=== PATIENT | female | born 1975 | race Caucasian/White ===

== ENCOUNTER 2022-08-25 16:47 | Emergency (ER) | payer MEDICAID, OTHER ==
[~2022-08-25] VITALS: Ht 167.7 cm; Wt 117.9 kg
[2022-08-25 17:14] LABS: BASOPHILS # (AUTO) 0.1 10^3/uL (0.0-0.1); BASOPHILS % (AUTO) 1 % (0-10); EOSINOPHILS # (AUTO) 0.2 10^3/uL (0.0-0.3); EOSINOPHILS % (AUTO) 2 % (0-10); HEMATOCRIT 35 % (35-52); HEMOGLOBIN 11.5 g/dL (11.5-16.0); LYMPHOCYTES # (AUTO) 3.1 10^3/uL (1.0-4.0); LYMPHOCYTES % (AUTO) 30 % (12-44); MEAN CORPUSCULAR HEMOGLOBIN 29 pg (25-34); MEAN CORPUSCULAR HGB CONC 33 g/dL (32-36); MEAN CORPUSCULAR VOLUME 88 fL (80-99); MEAN PLATELET VOLUME 9.8 fL (9.0-12.2); MONOCYTES # (AUTO) 0.3 10^3/uL (0.0-1.0); MONOCYTES % (AUTO) 3 % (0-12); NEUTROPHILS # (AUTO) 6.8 10^3/uL (1.8-7.8); NEUTROPHILS % (AUTO) 65 % (42-75); PLATELET COUNT 395 10^3/uL (130-400); WHITE BLOOD COUNT 10.5 10^3/uL (4.3-11.0)
[2022-08-25 17:19] LABS: ALBUMIN 4.2 GM/DL (3.2-4.5)
[2022-08-25 17:20] LABS: INR 1.1 (0.8-1.4); POTASSIUM 3.8 MMOL/L (3.6-5.0); PROTHROMBIN TIME PATIENT 14.1 SEC (12.2-14.7)
--- NOTE | 2022-08-25 17:20 | Diagnostic Imaging Report ---
EXAMINATION: Chest 1 view. HISTORY: Chest pain. COMPARISON: None available. FINDINGS: The lungs are clear without edema or pneumonia. No pleural effusion or pneumothorax. Heart size is normal. IMPRESSION: Clear lungs. Dictated by: Dictated on workstation # [id number]
[2022-08-25 17:21] LABS: CALCIUM 9.4 MG/DL (8.5-10.1)
[2022-08-25 17:22] LABS: TOTAL PROTEIN 7.8 GM/DL (6.4-8.2)
[2022-08-25 17:24] LABS: BILIRUBIN,TOTAL 0.8 MG/DL (0.1-1.0)
[2022-08-25 17:26] LABS: CREATININE SERUM 0.98 MG/DL (0.60-1.30)
[2022-08-25 17:28] LABS: MAGNESIUM 1.8 MG/DL (1.6-2.4)
--- NOTE | 2022-08-25 17:36 | ED Cardiac General ---
History of Present Illness General Chief Complaint: Respiratory Problems Stated Complaint: SOA Nursing Triage Note: PT TO RM 6 WITH CC OF SOA FOR ABOUT A WEEK. PT STATES WAS SEEN AT [facility] TODAY AND SENT TO ED. PT DENIES PAIN. Source: patient Exam Limitations: no limitations (MARY MOTT) History of Present Illness Date Seen by Provider: Aug 25, 2022 Time Seen by Provider: 17:15 Initial Comments This 47 y/o female presents with reported SOA and right leg swelling. Patient reports she was sent from [facility] today. Patient states she began experiencing SOA approximately a week ago with gradual worsening. Patient also states her right lower leg is edematous but non-tender. Patient denies chest pain. Patient states her past cardiac history is significant for HTN. Patient states she is currently homeless and has been living in her car. Patient states she has been sedentary and spends most of the day in her car. Patient also reports she has recently relapsed on using methamphetamines; her last use was 2-3 days ago. Patient admits to prior drug abuse but had been clean for 3 years prior to recent relapse. Patient states she smokes the methamphetamines and denies IV drug use. Patient states her SOA began prior to her last drug use. Patient reports they conducted an EKG at [facility] and then instructed her to go to the ED. Timing/Duration: 1 week Activities at Onset: none Associated Systoms: Shortness of Air, Other (right lower leg edema) (MARY MOTT) Initial Comments Patient also reports brief episodes of intermittent chest pain that lasted few minutes at a time over the past 2 to 3 months. She had a negative COVID-19 test at [facility]. Patient is not actively having chest pain at this time. (NATALY AGUERO MD) Allergies and Home Medications Allergies Coded Allergies: No Known Drug Allergies (Unverified , 08/25/22) Patient Home Medication List Home Medication List Reviewed: Yes (MARY MOTT) Review of Systems Review of Systems Constitutional: no symptoms reported EENTM: No Symptoms Reported Respiratory: Shortness of Air, SOA With Exertion, SOA at Rest Cardiovascular: Edema (right lower leg) Gastrointestinal: No Symptoms Reported Genitourinary: No Symptoms Reported Musculoskeletal: no symptoms reported Skin: no symptoms reported Psychiatric/Neurological: Anxiety, Depressed, Other (bipolar) Endocrine: No Symptoms Reported Hematologic/Lymphatic: No Symptoms Reported (MARY MOTT) Cardiovascular: See HPI (NATALY AGUERO MD) Past Jrozkfm-Vjpjwl-Vyqoay Hx Patient Social History Tobacco Use?: Yes Tobacco type used: Cigarettes Smoking Status: Current Everyday Smoker Use of E-Cig and/or Vaping dev: Yes E-Cig or Vaping type used: Nicotine Substance use?: Yes Substance type: Methamphetamine Alcohol Use?: No Pt feels they are or have been: No (MARY MOTT) Tobacco Use?: Yes Tobacco type used: Cigars Smoking Status: Current Everyday Smoker Use of E-Cig and/or Vaping dev: Yes E-Cig or Vaping type used: Nicotine Substance use?: Yes Substance type: Methamphetamine Alcohol Use?: No (NATALY AGUERO MD) Immunizations Up To Date First/Initial COVID19 Vaccinat: UNK Second COVID19 Vaccination Hebert: UNK (MARY MOTT) Past Medical History Surgery/Hospitalization HX: BIPOLAR, DEPRESSION, HTN, TUBAL (MARY MOTT) Surgeries: Yes Section, Tubal Ligation Respiratory: No Cardiac: Yes Hypertension Neurological: No : No Reproductive Disorders: No Genitourinary: No Gastrointestinal: No Musculoskeletal: No Endocrine: No HEENT: No Cancer: No Psychosocial: Yes Anxiety, Bipolar Integumentary: No (NATALY AGUERO MD) Physical Exam Vital Signs Vital Signs - First Documented 08/25/22 16:50 Temp 36.2 Pulse 115 Resp 20 B/P (MAP) 177/135 (149) Pulse Ox 96 O2 Delivery Room Air (NATALY AGUERO MD) Vital Signs Capillary Refill : Less Than 3 Seconds (MARY MOTT) Height, Weight, BMI Height: '" Weight: lbs. oz. kg; 41.00 BMI Method: General Appearance: Anxious, Moderate Distress HEENT: PERRL/EOMI Respiratory: Chest Non Tender, Lungs Clear, Normal Breath Sounds, No Accessory Muscle Use Cardiovascular: Regular Rate, Rhythm Gastrointestinal: Normal Bowel Sounds, Non Tender, Soft Extremity: Swelling (right lower leg) Neurologic/Psychiatric: Alert, Oriented x3 Skin: Normal Color, Warm/Dry Lymphatic: No Adenopathy (JENAE MOTT Progress/Results/Core Measures Results/Orders Lab Results Laboratory Tests Test 08/25/22 17:00 Range/Units White Blood Count 10.5 4.3-11.0 10^3/uL Red Blood Count 4.03 3.80-5.11 10^6/uL Hemoglobin 11.5 11.5-16.0 g/dL Hematocrit 35 35-52 % Mean Corpuscular Volume 88 80-99 fL Mean Corpuscular Hemoglobin 29 25-34 pg Mean Corpuscular Hemoglobin Concent 33 32-36 g/dL Red Cell Distribution Width 14.4 10.0-14.5 % Platelet Count 395 130-400 10^3/uL Mean Platelet Volume 9.8 9.0-12.2 fL Immature Granulocyte % (Auto) 0 % Neutrophils (%) (Auto) 65 42-75 % Lymphocytes (%) (Auto) 30 12-44 % Monocytes (%) (Auto) 3 0-12 % Eosinophils (%) (Auto) 2 0-10 % Basophils (%) (Auto) 1 0-10 % Neutrophils # (Auto) 6.8 1.8-7.8 10^3/uL Lymphocytes # (Auto) 3.1 1.0-4.0 10^3/uL Monocytes # (Auto) 0.3 0.0-1.0 10^3/uL Eosinophils # (Auto) 0.2 0.0-0.3 10^3/uL Basophils # (Auto) 0.1 0.0-0.1 10^3/uL Immature Granulocyte # (Auto) 0.0 0.0-0.1 10^3/uL Prothrombin Time 14.1 12.2-14.7 SEC INR Comment 1.1 0.8-1.4 Activated Partial Thromboplast Time 38 H 24-35 SEC D-Dimer 1.19 H 0.00-0.49 UG/ML Sodium Level 139 135-145 MMOL/L Potassium Level 3.8 3.6-5.0 MMOL/L Chloride Level 102 98-107 MMOL/L Carbon Dioxide Level 25 21-32 MMOL/L Anion Gap 12 5-14 MMOL/L Blood Urea Nitrogen 12 7-18 MG/DL Creatinine 0.98 0.60-1.30 MG/DL Estimat Glomerular Filtration Rate 73 BUN/Creatinine Ratio 12 Glucose Level 120 H 70-105 MG/DL Calcium Level 9.4 8.5-10.1 MG/DL Corrected Calcium 9.2 8.5-10.1 MG/DL Magnesium Level 1.8 1.6-2.4 MG/DL Total Bilirubin 0.8 0.1-1.0 MG/DL Aspartate Amino Transf (AST/SGOT) 15 5-34 U/L Alanine Aminotransferase (ALT/SGPT) 23 0-55 U/L Alkaline Phosphatase 61 40-136 U/L Myoglobin 52.9 10.0-92.0 NG/ML Troponin I < 0.028 <0.028 NG/ML C-Reactive Protein High Sensitivity 1.46 H 0.00-0.50 MG/DL B-Type Natriuretic Peptide 721.8 H <100.0 PG/ML Total Protein 7.8 6.4-8.2 GM/DL Albumin 4.2 3.2-4.5 GM/DL (NATALY AGUERO MD) My Orders Orders - NATALY AGUERO MD Ekg Tracing (08/25/22 16:51) Cbc With Automated Diff (08/25/22 16:53) Magnesium (08/25/22 16:53) Chest 1 View, Ap/Pa Only (08/25/22 16:53) Comprehensive Metabolic Panel (08/25/22 16:53) Myoglobin Serum (08/25/22 16:53) Protime With Inr (08/25/22 16:53) Partial Thromboplastin Time (08/25/22 16:53) O2 (08/25/22 16:53) Monitor-Rhythm Ecg Trace Only (08/25/22 16:53) Ed Iv/Invasive Line Start (08/25/22 16:53) Troponin I Noble (08/25/22 16:53) Bnp Noble (08/25/22 17:34) Hs C Reactive Protein (08/25/22 17:34) Fibrin Degradation Products (08/25/22 17:34) Aspirin Chewable Tablet (Baby Aspirin Ch (08/25/22 17:45) Ct Angio Chest W (08/25/22 18:49) Iohexol Injection (Omnipaque 350 Mg/Ml 1 (08/25/22 19:00) Received Contrast (Hold Metformin- Contr (08/25/22 19:00) Ns (Ivpb) (Sodium Chloride 0.9% Ivpb Bag (08/25/22 19:00) (NATALY AGUERO MD) Medications Given in ED (NATALY AGUERO MD) Vital Signs/I&O 08/25/22 08/25/22 16:50 19:43 Temp 36.2 Pulse 115 101 Resp 20 32 B/P (MAP) 177/135 (149) 150/110 Pulse Ox 96 96 O2 Delivery Room Air Room Air (NATALY AGUERO MD) Blood Pressure Mean: 149 Progress Progress Note : Time: 19:11 Progress Note Patient was interviewed and examined along with MS 4. EKG showed left bundle branch block. No prior is available for comparison. Patient is not having chest pain at this time. EKG therefore does not likely represent any ischemic heart disease. Work-up has been relatively unremarkable to this point. D-dimer was elevated and CT angiogram is pending. Care is being transitioned to Dr. Green at this time. Medical Student Attestation and Attending Note: I have personally interviewed and examined this patient along with Bri Mott, MS 4. I have reviewed student documentation including history, physical, and assessments. I agree with the documentation except where otherwise noted. Exam: General: Alert, oriented, no acute distress, well developed, obese HEENT: Normocephalic and atraumatic Heart: Mild regular tachycardia without murmur Lungs: Clear to auscultation bilaterally with normal effort Abdomen: Soft, nontender, nondistended, normal bowel sounds Extremities: Minimal edema of the left lower extremity moderate edema of the right lower extremity. No significant tenderness. Varicosities noted. Neuropsych: Alert, oriented, no focal deficits Skin: Warm and dry without rashes (NATALY AGUERO MD) Progress Note : Progress Note 1919--ASSUMED CARE OF PT AT SHIFT CHANGE. 1929--REVIEWED CT RESULTS WITH PT, AND ADVISED ADMIT FOR FURTHER EVALUATION AND TREATMENT OF HER SYMPTOMS INCLUDING CARDIOLOGY EVALUATION, ULTRASOUND OF HER LEG, DIURETICS, ETC. PT REFUSES ADMIT AND WANTS TO LEAVE. RISKS OF LEAVING/BENEFITS OF STAYING EXPLAINED TO PATIENT AND SHE CONTINUES TO REFUSE ADMIT. AMA PAPERS SIGNED. (MICHAEL GREEN DO) Initial ECG Impression Date: Aug 25, 2022 Initial ECG Impression Time: 16:55 Initial ECG Rate: 112 Initial ECG Rhythm: S.Tach Comment Sinus tachycardia with no ischemic ST elevation or depression. Left bundle branch block. Left axis deviation. (NATALY AGUERO MD) Diagnostic Imaging Diagonstic Imaging: Xray Plain Films/CT/US/NM/MRI: chest Comments NAME: [facility]ATT [facility] REC#: [id number] PT STATUS: REG ER : 1975 PHYSICIAN: NATALY AGUERO MD ADMIT DATE: 08/25/22/ER Signed Date of Exam:08/25/22 CHEST 1 VIEW, AP/PA ONLY EXAMINATION: Chest 1 view. HISTORY: Chest pain. COMPARISON: None available. FINDINGS: The lungs are clear without edema or pneumonia. No pleural effusion or pneumothorax. Heart size is normal. IMPRESSION: Clear lungs. Dictated by: Dictated on workstation # [id number] Dict: 08/25/221715 Trans: 08/25/221736 [facility] [id number] Interpreted by: ALBERTA JOSE MD Electronically signed by: ALBERTA JOSE MD 08/25/221736 (MARY MOTT) Comments CT CHEST ANGIOGRAM--PER RADIOLOGIST REPORT AT 1925 FINDINGS: There is no pulmonary embolism. There is mild edema. No pneumonia. No pleural effusion. No pneumothorax. No suspicious nodule. There is no axillary or supraclavicular lymphadenopathy. There is no mediastinal lymphadenopathy. Left ventricle is mildly dilated. There are mild coronary artery calcifications. No pericardial effusion. Aorta is normal in caliber. Limited views of the upper abdomen show changes of cholecystectomy. There is no osseous suspicious lesion. IMPRESSION: 1. No pulmonary embolism. 2. Mild pulmonary edema. Reviewed: Reviewed by Me (MICHAEL GREEN DO) Departure Impression Primary Impression: Dyspnea on exertion Additional Impressions: Left against medical advice Chest pain Leg swelling Methamphetamine use Disposition: 07 AGAINST MEDICAL ADVICE Condition: Against Medical Advice MARY MOTT Aug 25, 2022 17:36 NATALY AGUERO MD Aug 25, 2022 19:12 MICHAEL GREEN DO Aug 25, 2022 19:30
[2022-08-25] MEDS ORDERED: ASPIRIN 81 MG CHEW (CHILDREN'S ASA) PO ONE (17:45)
[2022-08-25] MEDS ORDERED: HOLD METFORMIN - RECEIVED CONTRAST 20 ML VIAL IV SCH (19:00)
[2022-08-25] MEDS ORDERED: IOHEXOL 350 MG/ML 100 ML (OMNIPAQUE 350) VIAL IV ONE (19:00)
[2022-08-25] MEDS ORDERED: NS 100 ML (IVPB) BAG IV ONE (19:00)
--- NOTE | 2022-08-25 19:13 | Diagnostic Imaging Report ---
EXAMINATION: CT angiography of the chest. TECHNIQUE: Contrast enhanced thin section helical images were obtained through the chest with intravenous contrast timed for the optimal opacification of the arterial structures per CTA protocol. Post-processing, reconstructions and interpretation of angiographic images of the vessels was performed. 3D MIP reconstructions were performed and reviewed. All CT scans use one or more of the following dose optimizing techniques: automated exposure control, MA and/or KvP adjustment based on patient size and exam type or iterative reconstruction. HISTORY: Short of breath. COMPARISON: None available. FINDINGS: There is no pulmonary embolism. There is mild edema. No pneumonia. No pleural effusion. No pneumothorax. No suspicious nodule. There is no axillary or supraclavicular lymphadenopathy. There is no mediastinal lymphadenopathy. Left ventricle is mildly dilated. There are mild coronary artery calcifications. No pericardial effusion. Aorta is normal in caliber. Limited views of the upper abdomen show changes of cholecystectomy. There is no osseous suspicious lesion. IMPRESSION: 1. No pulmonary embolism. 2. Mild pulmonary edema. Dictated by: Dictated on workstation # [id number]
[2022-08-25 19:43] VITALS: BP 150/110
== END 2022-08-25 19:43 | disposition left against medical advice (07) ==
LOC: ER 16:52
DX: F15.90 Other stimulant use, unspecified, uncomplicated (principal); M79.89 Other specified soft tissue disorders; R06.09 Other forms of dyspnea; R07.9 Chest pain, unspecified; R79.1 Abnormal coagulation profile; F17.210 Nicotine dependence, cigarettes, uncomplicated
CPT/HCPCS: 36415; 71045; 71275; 80053; 83735; 83874; 83880; 84484; 85025; 85379; 85610; 85730; 86141; 93005; 93041

== ENCOUNTER → 2022-09-07 | Outpatient (CLI) | payer MEDICAID | LOC: CARD 14:06 | PROVIDERS: ATTEND Nurse Practitioner Family | DX: I08.3 Combined rheumatic disorders of mitral, aortic and tricuspid valves (principal); I44.7 Left bundle-branch block, unspecified | CPT/HCPCS: 93306 ==

== ENCOUNTER → 2022-10-17 | Outpatient (CLI) | payer MEDICAID ==
[~2022-10-17] MED LIST: CATHETER FLUSH 10 ML SYR IVP PRN; REGADENOSON 0.4 MG/5 ML SYR (LEXISCAN) IV ONE
[2022-10-17 09:01] VITALS: BP 119/88
--- NOTE | 2022-10-17 14:19 | Cardiology Stress Test Report ---
Stress Test Report Date of Procedure/Referring: Date of Procedure: Oct 17, 2022 PCP No,Local Physician Admitting Physician Admitting Physician: Attending Physician: Tayla Adams MD Baseline Heart Rate: 81 Baseline Blood Pressure: Blood Pressure Systolic: 119 Blood Pressure Diastolic: 88 Baseline Vitals Vital Signs Date Time Temp Pulse Resp B/P (MAP) Pulse Ox O2 Delivery O2 Flow Rate FiO2 10/17/22 09:01 81 119/88 (98) Baseline EKG: Baseline EKG: LBBB Summary After explaining the procedure to the patient, she signed a consent and then brought to the stress nuclear laboratory. Patient received 0.4 mg Lexiscan for stress test, ECG, heart rate and blood pressure were monitored continuously. Resting and stress dose of radio tracer were injected, imaging was acquired and reviewed in short axis, horizontal long axis and vertical long axis views. TID: 1.05 SSS: 10 SDS: 0 EF: 26 1. Patient tolerated Lexiscan well 2. Baseline left bundle branch block persisted during test 3. Fixed defect involving the whole anterior wall anterior apex 4. Dilated left ventricle with severe diffuse left ventricular hypokinesia, more pronounced at the anterior wall, ejection fraction 26% Copy Copies To 1: [facility]/TAYLA MCGEE MD Oct 17, 2022 14:19
== END ==
LOC: CARD 07:24
PROVIDERS: ATTEND Internal Medicine Cardiovascular Disease
DX: I25.10 Atherosclerotic heart disease of native coronary artery without angina pectoris (principal); I10 Essential (primary) hypertension
CPT/HCPCS: 78452; 93017

== ENCOUNTER 2022-10-24 12:11 | Day surgery (SDC) | payer MEDICAID ==
[~2022-10-24] VITALS: Ht 167.6 cm; Wt 117.9 kg
[2022-10-24] MEDS ORDERED: NS IV 1000 ML 1,000 ML IV SCH ×2 (12:30→18:30)
[2022-10-24] MEDS ORDERED: LIDOCAINE 1% INJ 30 ML (XYLOCAINE) VIAL ONE (12:34)
[2022-10-24] MEDS ORDERED: NS IV 1000 ML 1,000 ML ONE (12:34)
[2022-10-24] MEDS ORDERED: HEParin (CATH LAB) 2,000 ML IV ONE (12:34)
[2022-10-24 12:47] VITALS: BP 113/88
--- NOTE | 2022-10-24 13:03 | Diagnostic Imaging Report ---
INDICATION: CHF. COMPARISON: 08/25/2022. FINDINGS: Single frontal view of the chest demonstrates normal heart size and pulmonary vascularity. The lungs are well aerated and clear. No large pleural effusion or pneumothorax is seen. The visualized osseous structures show no acute abnormalities. IMPRESSION: No acute cardiopulmonary process. Dictated by: Dictated on workstation # [id number]
[2022-10-24 13:10] LABS: CLARITY,URINE CLOUDY; COLOR,URINE ORANGE; GLUCOSE, URINE (UA) NEGATIVE (NEGATIVE); HEMATOCRIT 43 % (35-52); KETONES,URINE NEGATIVE (NEGATIVE); LEUKOCYTE ESTERASE ,URINE NEGATIVE (NEGATIVE); MEAN CORPUSCULAR HEMOGLOBIN 28 pg (25-34); MEAN CORPUSCULAR HGB CONC 33 g/dL (32-36); MEAN CORPUSCULAR VOLUME 85 fL (80-99); MEAN PLATELET VOLUME 10.1 fL (9.0-12.2); NITRITE,URINE NEGATIVE (NEGATIVE); PH,URINE 5.5 (5-9); PLATELET COUNT 285 10^3/uL (130-400); PROTEIN,URINE 1+ (NEGATIVE)
[2022-10-24 13:24] LABS: BACTERIA,URINE MODERATE /HPF; BILIRUBIN,URINE NEGATIVE (NEGATIVE); INR 0.9 (0.8-1.4); PROTHROMBIN TIME PATIENT 12.8 SEC (12.2-14.7); RBC,URINE 25-50 /HPF; WBC,URINE 0-2 /HPF
[2022-10-24 13:25] LABS: AMORPHOUS SEDIMENT,UR FEW AMOR URATES /LPF
[2022-10-24 13:33] LABS: BILIRUBIN,TOTAL 0.4 MG/DL (0.1-1.0); CALCIUM 9.7 MG/DL (8.5-10.1); CREATININE SERUM 0.85 MG/DL (0.60-1.30); POTASSIUM 3.9 MMOL/L (3.6-5.0); TOTAL PROTEIN 7.8 GM/DL (6.4-8.2)
[2022-10-24] MEDS ORDERED: ACET325T38 PO (13:38)
[2022-10-24] MEDS ORDERED: CARV3.122 PO (13:38)
[2022-10-24] MEDS ORDERED: ASPI-1238 PO (13:38)
[2022-10-24] MEDS ORDERED: RT-ALBUINH INH (13:38)
[2022-10-24] MEDS ORDERED: OMEP20TA33 PO (13:38)
[2022-10-24] MEDS ORDERED: SACU1TAB2 PO (13:38)
[2022-10-24] MEDS ORDERED: DOXY100T2 PO (13:38)
[2022-10-24] MEDS ORDERED: FURO20TA4 PO (13:38)
--- NOTE | 2022-10-24 17:37 | Cardiac Procedure Note-CS/ASA ---
Pre-Procedure Note Pre-Op Procedure Note Date of Available H&P: Oct 18, 2022 Date H&P Reviewed: Oct 24, 2022 Time H&P Reviewed: 17:37 History & Physical: H&P Reviewed, Patient Examed, No changes noted Pre-Operative Diagnosis: CHF Conscious Sedation Pre-Proced Time 17:37 ASA Score 3 For ASA 3 and 4: Consider anesthesia and medical clearance. Also, for patients with a history of failed moderate sedation consider anesthesia. Airway Lungs Heart ASA score ASA 1: a normal healthy patient ASA 2: a patient with a mild systemic disease (mid diabetes, controlled hypertension, obesity ASA 3: a patient with a severe systemic disease that limits activity (angina, COPD, prior Myocardial infarction) ASA 4: a patient with an incapacitating disease that is a constant threat to life (CHF, renal failure) ASA 5: a moribund patient not expected to survive 24 hrs. (ruptured aneurysm) ASA 6: a declared brain- patient whose organs are being harvested. For emergent operations, add the letter E after the classification Mallampati Classification Grade 3 Sedation Plan Analgesia, Amnesia, Plan communicated to team members, Discussed options with patient/fam, Discussed risks with patient/fam The patient is an appropriate candidate to undergo the planned procedure, sedation, and anesthesia. The patient immediately re-assessed prior to indication. TAYLA TAPIA MD Oct 24, 2022 17:37
[2022-10-24] MEDS ORDERED: VERAPAMIL 5 MG/2 ML (CALAN) VIAL IV ONE (17:58)
[2022-10-24] MEDS ORDERED: fentaNYL INJ 100 MCG/2 ML AMP ONE (17:58)
[2022-10-24] MEDS ORDERED: MIDAZOLAM 5 MG/5 ML (VERSED) VIAL ONE (17:59)
[2022-10-24] MEDS ORDERED: HEParin 1000 UNIT/ML (10ML VIAL) FOR BOLUS ONE (17:59)
[2022-10-24] MEDS ORDERED: NITRO DRIP 25000 MCG/D5W 250 ML IV ONE (17:59)
[2022-10-24] MEDS ORDERED: EMPA10TA PO (18:32)
[2022-10-24] MEDS ORDERED: SPIR25TA PO (18:32)
--- NOTE | 2022-10-24 18:32 | Discharge Inst-Post CATH ---
Discharge Inst-CATH/EP Problems Reviewed?: Yes Post Cardiac Cath/EP D/C Inst Follow Up/Plan Appointment with Dr. Adams's office in 2 to 4 weeks <b>CARDIAC CATH/EP PROCEDURE DISCHARGE INSTRUCTIONS</b> ACTIVITY * Go Home directly and rest. * Limit activity of the leg (or wrist if it was used) for 7 days including aer obics, swimming, jogging, bicycling, etc. * Restrict stair-climbing for 7 days if possible, if not, climb up with your non-cath leg, then bring together on the same step. * Avoid lifting, pushing, pulling or excessive movement of the affected extremi ty for 7 days. * Customary sexual activity may be resumed after 2 days-use caution not to use a position that strains or causes pain to the affected extremity. * No driving for 24 hours. * NO SMOKING. * Avoid straining for bowel movements for 7 days. * Gentle walking on level ground is allowed. * Returning to work will depend on the type of procedure and the results. Your doctor will discuss this with you. CALL YOUR DOCTOR FOR ANY OF THE FOLLOWING: *If bleeding from the puncture site occurs- Apply gentle pressure to site with clean cloth and call your doctor or EMS. * If a knot or lump forms under the skin, increases in size, or causes pain. * If bruising appears to be worsening or moving further down your leg instead of disappearing. * Temperature above 101 F. CARE OF YOUR GROIN INCISION; * Bruising or purple discoloration of the skin near the puncture site is common. * You may shower only, no bathtub bathing for 5 days. Be careful to avoid slipping as your leg may feel stiff. * If a closure device was used on your femoral artery, please see the attached guide regarding care of the device and your leg. * Leave dressing on FOR 24 hours. CARE OF YOUR WRIST INCISION; * Bruising or purple discoloration of the skin near the puncture site is common. * You may shower. * DO NOT submerge wrist. * Leave dressing on FOR 24 hours. TAYLA ADAMS MD Oct 24, 2022 18:32
--- NOTE | 2022-10-24 18:36 | Cardiac Cath Report ---
Cardiac Cath Report Physician (s)/Fan Balancer (s) Physician TAYLA TAPIA MD Pre-Procedure Diagnosis Pre-Procedure Diagnosis: CHF Post-Procedure Note Procedure Start Date: Oct 24, 2022 Name of Procedure: Left heart catheterization Findings/Procedure Note PROCEDURE NOTE: 47-year-old lady with severe cardiomyopathy, deterioration left ventricular function, abnormal stress test, recommended cardiac catheterization possible PTCA. After explaining the procedure to the patient, all pros and cons were explained, all questions were answered. The patient signed the consent and then she was placed in the cardiac catheterization laboratory. Groin was prepped in SL fashion local anesthesia was used. Sheath placed in the right radial artery, Kimball catheter was advanced to the left ventricular cavity, pressure was measured, pullback LV to aorta was done. Engaged the right coronary system and angiogram was done then the system went down, I was unable to do power injector. After multiple attempts and changing the whole system I decided to proceed with manual injection in the left system, I engaged the left coronary system and did manual injection. At the end of the procedure the sheath was removed. Vascular band was used FINDINGS: Hemodynamics LV 106/23, end-diastolic pressure of 23 Aorta 101/72 mean of 82 ANATOMY: Left Main is free of obstructive disease Left Anterior Descending has mild to moderate disease up to 40 to 50% stenosis in the mid LAD nonobstructive disease Left Circumflex has mild to moderate disease nonobstructive disease Right Coronary Artery is dominant artery with mild disease nonobstructive disease LV Gram was done showing dilated left ventricle with diffuse left ventricular hypokinesia, ejection fraction 30% CONCLUSION: 1. Severe dilated cardiomyopathy, nonischemic cardiomyopathy known ejection fraction 30% 2. Mildly elevated left ventricular end-diastolic pressure DISCUSSION AND RECOMMENDATION: Continue to maximize medical therapy. Planning to proceed with ICD implant Anesthesia Type: Conscious Sedation Estimated blood loss (mL): 15 ml Contrast Amount: 45 ml Total Radiation Dose: 557 mGy Post-Procedure Diagnosis Post-operative diagnosis: Congestive heart failure, chronic compensated left ventricular systolic dysfunction, nonischemic cardiomyopathy, dilated cardiomyopathy Hypertension Hyperlipidemia Coronary artery disease TAYLA TAPIA MD Oct 24, 2022 18:36
[2022-10-24 18:47] VITALS: BP 115/64
[2022-10-24 20:00] VITALS: BP 96/52
[2022-10-24 22:00] VITALS: BP 95/62
== END 2022-10-24 22:00 | disposition home or self-care (01) ==
LOC: CATH 12:11
PROVIDERS: ATTEND Internal Medicine Cardiovascular Disease
DX: I25.10 Atherosclerotic heart disease of native coronary artery without angina pectoris (principal); I11.0 Hypertensive heart disease with heart failure; I50.22 Chronic systolic (congestive) heart failure; E78.5 Hyperlipidemia, unspecified; F17.290 Nicotine dependence, other tobacco product, uncomplicated; I44.7 Left bundle-branch block, unspecified; Z79.82 Long term (current) use of aspirin
CPT/HCPCS: 71045; 80053; 80061; 81000; 85027; 85610; 85730; 87081; 87088; 93005; 93458; C1894; 36415

== ENCOUNTER → 2022-12-12 | Outpatient (CLI) | payer MEDICAID ==
[~2022-12-12] MED LIST changes: +ACET325T38 PO; +ASPI-1238 PO; +CARV3.122 PO; -CATHETER FLUSH 10 ML SYR IVP PRN; +DOXY100T2 PO; +EMPA10TA PO; +FURO20TA4 PO; +OMEP20TA33 PO; -REGADENOSON 0.4 MG/5 ML SYR (LEXISCAN) IV ONE; +RT-ALBUINH INH; +SACU1TAB2 PO; +SPIR25TA PO
== END ==
LOC: CARD 12:00
PROVIDERS: ATTEND Physician Assistant
DX: I25.10 Atherosclerotic heart disease of native coronary artery without angina pectoris (principal); I11.9 Hypertensive heart disease without heart failure; I34.0 Nonrheumatic mitral (valve) insufficiency
CPT/HCPCS: 93306

== ENCOUNTER → 2023-02-11 | Outpatient (CLI) | payer MEDICAID | LOC: CARD 08:57 | PROVIDERS: ATTEND Physician Assistant | DX: I11.0 Hypertensive heart disease with heart failure (principal); I50.20 Unspecified systolic (congestive) heart failure; I34.0 Nonrheumatic mitral (valve) insufficiency | CPT/HCPCS: 93306 ==

== ENCOUNTER 2023-04-25 20:11 | Outpatient (CLI) | payer MEDICAID | END 2023-04-26 06:09 | disposition home or self-care (01) | LOC: SLEEP 20:11 | PROVIDERS: ATTEND Internal Medicine Cardiovascular Disease | DX: G47.33 Obstructive sleep apnea (adult) (pediatric) (principal); G47.36 Sleep related hypoventilation in conditions classified elsewhere; I10 Essential (primary) hypertension | CPT/HCPCS: 95810 ==

== ENCOUNTER 2023-06-21 21:03 | Outpatient (CLI) | payer MEDICAID | END 2023-06-22 06:24 | LOC: SLEEP 21:03 | PROVIDERS: ATTEND Otolaryngology Otolaryngology/Facial Plastic Surgery | DX: G47.33 Obstructive sleep apnea (adult) (pediatric) (principal); I11.0 Hypertensive heart disease with heart failure; I50.9 Heart failure, unspecified; R06.83 Snoring | CPT/HCPCS: 95811 ==